=== PATIENT | male | born 1965 | race Caucasian/White ===

== ENCOUNTER 2017-05-12 08:43 | Emergency (ER) | payer BC ==
[~2017-05-12] VITALS: Ht 175.3 cm; Wt 80.0 kg
[2017-05-12] MEDS ORDERED: DIPH,PERTUSS(ACELL),TET VAC/PF 0.5 ML IM-VACC ONE ×2 (09:30→09:32)
[2017-05-12] MEDS ORDERED: LIDOCAINE 1%, 20ML SQ ONE (09:30)
[2017-05-12] MEDS ORDERED: LIDOCAINE 1%, 20ML ONE (09:32)
[2017-05-12 11:30] VITALS: BP 127/74
== END 2017-05-12 11:32 | disposition home or self-care (01) ==
LOC: ED 09:09
DX: S81.012A Laceration without foreign body, left knee, initial encounter (principal); S83.412A Sprain of medial collateral ligament of left knee, initial encounter; V87.8XXA Person injured in other specified noncollision transport accidents involving motor vehicle (traffic), initial encounter; Y93.89 Activity, other specified; Y92.89 Other specified places as the place of occurrence of the external cause; Y99.8 Other external cause status
CPT/HCPCS: 12001; 90471; 90715

== ENCOUNTER 2017-07-21 05:30 | Observation (INO) | payer BC ==
[2017-07-19 13:23] VITALS: BP 122/83
[~2017-07-21] VITALS: Ht 175.3 cm; Wt 82.4 kg
[~2017-07-21 05:30] MED LIST: None per pt
[2017-07-21] MEDS ORDERED: LIDOCAINE 1%, 2ML ONE (06:05)
[2017-07-21] MEDS ORDERED: BUPIVACAINE/PF 0.5% ONE (06:10)
[2017-07-21] MEDS ORDERED: LIDOCAINE/PF 1%, 30ML ONE (06:11)
[2017-07-21] MEDS ORDERED: EPINEPHRINE 1 MG/ML, 1ML ONE (06:11)
[2017-07-21] MEDS ORDERED: LACTATED RINGERS 1,000 ML IV SCH (06:20)
[2017-07-21] MEDS ORDERED: LIDOCAINE 1%, 2ML SQ PRN (06:30)
[2017-07-21] MEDS ORDERED: MIDAZOLAM 1 MG/ML, 2ML ONE (06:33)
[2017-07-21] MEDS ORDERED: FENTANYL PF 100 MCG/2ML ONE ×2 (06:33→09:53)
[2017-07-21] MEDS ORDERED: BUPIVACAINE/PF 0.25% ONE (06:38)
[2017-07-21] MEDS ORDERED: cloniDINE/PF 100 MCG/ML, 10 ML ONE (06:38)
[2017-07-21] MEDS ORDERED: DEXAMETHASONE 4 MG/ML, 5ML ONE (06:54)
[2017-07-21] MEDS ORDERED: PROPOFOL 10 MG/ML, 20ML ONE (06:54)
[2017-07-21] MEDS ORDERED: KETOROLAC 30 MG/1 ML ONE (06:54)
[2017-07-21] MEDS ORDERED: ONDANSETRON 2MG/ML, 2ML ONE (06:54)
[2017-07-21] MEDS ORDERED: CEFAZOLIN 1,000 MG ONE (06:54)
[2017-07-21] MEDS ORDERED: KETAMINE 10 MG/ML, 20ML ONE (07:11)
[2017-07-21] MEDS ORDERED: HYDROmorphone 1 MG/ML, 1ML ONE ×2 (07:11→07:56)
[2017-07-21] MEDS ORDERED: MEPERIDINE/PF 25MG/0.5ML IVPush PRN (07:30)
[2017-07-21] MEDS ORDERED: ONDANSETRON 2MG/ML, 2ML IVPush PRN (07:30)
[2017-07-21] MEDS ORDERED: HYDROmorphone 1 MG/ML, 1ML IV PRN (07:30)
[2017-07-21] MEDS ORDERED: OXYcodone 5 MG/5 ML ORAL.SOL UDC PO PRN (07:30)
[2017-07-21] MEDS ORDERED: LABETALOL 5MG/ML, 20ML IV PRN (07:30)
[2017-07-21] MEDS ORDERED: FENTANYL PF 100 MCG/2ML IV PRN (07:30)
[2017-07-21] MEDS ORDERED: hydrALAzine 20 MG/ML, 1ML IV PRN (07:30)
[2017-07-21] MEDS ORDERED: MIDAZOLAM 1 MG/ML, 2ML IV PRN (07:30)
[2017-07-21] MEDS ORDERED: PROMETHAZINE 25 MG/ML, 1ML IV PRN (07:30)
[2017-07-21] MEDS ORDERED: ACETAMINOPHEN 325 MG TABLET PO PRN (07:30)
[2017-07-21] MEDS ORDERED: ROPIvacaine/PF 0.5%, 20 ML ONE (09:47)
[2017-07-21] MEDS ORDERED: ACETAMINOPHEN 650 MG/20.3 ML UDC ONE (09:54)
[2017-07-21] MEDS ORDERED: OXYcodone 5 MG/5 ML ORAL.SOL UDC ONE (09:54)
[2017-07-21 11:38] VITALS: BP 129/85
[2017-07-21] MEDS ORDERED: morphine SULFATE 10 MG/ML, 1ML IV PRN (12:00)
[2017-07-21 12:45] VITALS: BP 121/76
[2017-07-21] MEDS: KETOROLAC 30 MG/1 ML IV SCH ×2 (13:58→21:30)
[2017-07-21] MEDS: OXYcodone/APAP 5/325MG TABLET PO PRN (17:14)
[2017-07-21 19:39] VITALS: BP 108/62
[2017-07-21] MEDS: ASPIRIN 325 MG TABLET EC PO SCH (21:30)
[2017-07-22] MEDS ORDERED: OXYC5CAP2 PO (00:50)
[2017-07-22] MEDS ORDERED: ONDA4TAB7 PO (00:51)
[2017-07-22] MEDS ORDERED: ASPI500T4 PO (00:53)
[2017-07-22] MEDS: OXYcodone/APAP 5/325MG TABLET PO PRN (02:55)
[2017-07-22 03:22] VITALS: BP 123/77
[2017-07-22] MEDS: KETOROLAC 30 MG/1 ML IV SCH (05:32)
[2017-07-22] MEDS ORDERED: ONDANSETRON 2MG/ML, 2ML IVPush ONE (07:30)
[2017-07-22 07:56] VITALS: BP 123/83
[2017-07-22] MEDS: ASPIRIN 325 MG TABLET EC PO SCH (09:14)
[2017-07-22] MEDS ORDERED: ONDANSETRON ODT 4 MG PO PRN (10:30)
== END 2017-07-22 11:45 | disposition home or self-care (01) ==
LOC: OR 05:30 → 4NOR 11:19 → OUT 20:52 → 4NOR 20:52
PROVIDERS: ADMIT Orthopaedic Surgery; ATTEND Orthopaedic Surgery
DX: S83.512A Sprain of anterior cruciate ligament of left knee, initial encounter (principal); S83.522A Sprain of posterior cruciate ligament of left knee, initial encounter; S83.412A Sprain of medial collateral ligament of left knee, initial encounter; S83.242A Other tear of medial meniscus, current injury, left knee, initial encounter; S83.282A Other tear of lateral meniscus, current injury, left knee, initial encounter; M65.9 Synovitis and tenosynovitis, unspecified; X50.1XXA Overexertion from prolonged static or awkward postures, initial encounter; Y93.55 Activity, bike riding; Y92.89 Other specified places as the place of occurrence of the external cause; Y99.8 Other external cause status
CPT/HCPCS: 29880; 73560; 76001; 96374; 96375; 96376; C1713; C1762; G0378; J0171; J0690; J0735; J1100; J1170; J1885; J2250; J2405; J2704; J3010; J3490; J2795